=== PATIENT | male | born 1950 ===

== ENCOUNTER 2018-07-20 09:17 | Outpatient (CLI) | payer OTHER ==
[~2018-07-20 09:17] MED LIST: NABUMETONE750 MG PO
== END 2018-07-20 09:29 | disposition home or self-care (01) ==
LOC: NUCLEAR 09:17
DX: I65.29 Occlusion and stenosis of unspecified carotid artery (principal); R09.89 Other specified symptoms and signs involving the circulatory and respiratory systems; I11.9 Hypertensive heart disease without heart failure; E11.9 Type 2 diabetes mellitus without complications

== ENCOUNTER 2020-05-03 10:19 | Outpatient (CLI) | payer OTHER | END 2020-05-03 10:37 | disposition home or self-care (01) | LOC: NUCLEAR 10:19 | PROVIDERS: ATTEND Internal Medicine Cardiovascular Disease | DX: I65.23 Occlusion and stenosis of bilateral carotid arteries (principal); I11.9 Hypertensive heart disease without heart failure; E11.9 Type 2 diabetes mellitus without complications ==